=== PATIENT | female | born 1995 | race Two or more races ===

== ENCOUNTER 2022-06-12 19:06 | Inpatient (IN) | payer OTHER ==
[~2022-06-12] VITALS: Ht 170.2 cm; Wt 101.2 kg
[2022-06-12] MEDS ORDERED: PRENATAL TABLE1 EAC3 PO (19:15)
[2022-06-13] MEDS ORDERED: NP THYROID60 MG (08:45)
== END 2022-06-15 10:40 | disposition home or self-care (01) | DRG 819 ==
LOC: LDR 19:06
PROVIDERS: ADMIT Obstetrics & Gynecology; ATTEND Obstetrics & Gynecology
PROC: 8E0ZXY6 Isolation (ICD-10-PCS; 2022-06-12)
PROC: 0UVC7ZZ Restriction of Cervix, Via Natural or Artificial Opening (ICD-10-PCS; principal; 2022-06-13 16:00)
DX: O34.32 Maternal care for cervical incompetence, second trimester (principal); Z3A.22 22 weeks gestation of pregnancy; Z20.822 Contact with and (suspected) exposure to COVID-19

== ENCOUNTER 2022-08-19 17:35 | Outpatient (CLI) | payer OTHER ==
[~2022-08-19 17:35] MED LIST: NP THYROID60 MG; PRENATAL TABLE1 EAC3 PO
[2022-09-17] MEDS ORDERED: AMPICILLIN SOD500 MG IM (08:52)
== END 2022-08-20 16:15 | disposition home or self-care (01) ==
LOC: OBS/DEL 17:35
PROVIDERS: ATTEND Obstetrics & Gynecology
DX: O26.893 Other specified pregnancy related conditions, third trimester (principal); Z3A.32 32 weeks gestation of pregnancy; Z88.0 Allergy status to penicillin

== ENCOUNTER 2022-10-01 03:21 | Inpatient (IN) | payer OTHER ==
[~2022-10-01] VITALS: Ht 167.6 cm; Wt 106.6 kg
[~2022-10-01 03:21] MED LIST changes: +AMPICILLIN SOD500 MG IM
== END 2022-10-03 13:43 | disposition home or self-care (01) | DRG 807 ==
LOC: LDR 03:21 → OB/GYN 03:21
PROVIDERS: ADMIT Obstetrics & Gynecology; ATTEND Obstetrics & Gynecology
PROC: 10E0XZZ Delivery of Products of Conception, External Approach (ICD-10-PCS; principal; 2022-10-01)
PROC: 0HQ9XZZ Repair Perineum Skin, External Approach (ICD-10-PCS; 2022-10-01)
PROC: 4A1HXCZ Monitoring of Products of Conception, Cardiac Rate, External Approach (ICD-10-PCS; 2022-10-01)
DX: O70.0 First degree perineal laceration during delivery (principal); Z37.0 Single live birth; Z3A.38 38 weeks gestation of pregnancy; Z20.822 Contact with and (suspected) exposure to COVID-19